=== PATIENT | female | born 2000 | race Caucasian/White ===

== ENCOUNTER 2024-01-10 14:05 | Emergency (ER) | payer MEDICAID, SELFPAY ==
[2024-01-10 14:11] VITALS: BP 137/99; PULSE 98; RESP 18; TEMP 36.3; O2SAT 97
--- NOTE | 2024-01-10 14:30 | CRLHL7_ITS ---
For Patients: As a result of the Cures Act, medical imaging exams and procedure reports are released immediately into your electronic medical record. You may view this report before your referring provider. If you have questions, please contact your health care provider. INDICATION: Foot pain. Missed step at wedding. TECHNIQUE: Left foot three views. COMPARISON: None. FINDINGS: Nondisplaced transverse type fracture of the proximal 5th metatarsal. No additional evidence of fracture. Soft tissue swelling. No radiopaque foreign body. IMPRESSION: Proximal 5th metatarsal fracture. Dictated by Coleman Sim MD @ 01/10/2024 4:07:41 PM (Electronically Signed)
--- NOTE | 2024-01-10 14:37 | ED_ITS ---
HPI - Extremity Injury (Lower) General Date Seen: 01/10/24 Chief Complaint: Extremity Pain/Injury, Lower Stated Complaint: foot pain - broken Time Seen by Provider: 01/10/24 14:07 Source: patient Mode of arrival: ambulatory Limitations: no limitations History of Present Illness HPI Narrative: Patient is the very nice 23-year-old female presents here with her significant other with left foot pain she was seen in [address] 2 days ago after she missed a step been diagnosed with a broken foot. On reviewing the notes, she has a closed 5th metatarsal fracture, she was post to get follow-up for least a call in now 1 has called her. She is placed on ibuprofen and tramadol once a day. The pain seems worse, she is in a cam walker. Denies any numbness tingling or weakness. Any previous history of foot injury. The pain however is worsening. Related Data Home Medications ?Medication ?Instructions ?Recorded ?Confirmed ibuprofen 600 mg tablet 600 mg PO Q6H PRN 01/10/24 01/10/24 tramadol 50 mg tablet 50 mg PO Q6H PRN 01/10/24 01/10/24 Allergies Allergy/AdvReac Type Severity Reaction Status Date / Time No Known Drug Allergies Allergy Verified 01/10/24 14:13 Review of Systems Status of ROS: Reports: 6 or more systems reviewed and unremarkable except as noted in History and below [facility] Social History Smoking Status: Never smoker How often do you have a drink containing alcohol: never AUDIT-C Alcohol total score: 0 service: No Exam Narrative: Exam Narrative: Patient appears no apparent distress her cam walker is a move she has swelling over the lateral part of her foot this consistent with this along with some bruising DP and posterior tibial pulses are normal there is no lesion to suggest open. And dorsiflexion plantar flexion of her foot is normal. Const: Vital Signs, click to edit/add: Vital Signs - 24 hr 01/10/24 14:11 Temperature 97.4 F L Pulse Rate [Right Pulse Oximeter] 98 Respiratory Rate 18 Blood Pressure [Ri ght Upper Arm] 137/99 H Pulse Oximetry 97 Oxygen Delivery Me thod Room Air Documenting provider has reviewed patient's vital signs: yes Course Course ED Course: I discussed with her we will leave her in a cam walker, will get her follow-up with Orthopedics, his lungs the fracture does not move, I think she stands a good chance of healing. We will set her stop the tramadol Tylenol and ibuprofen. She was comfortable with this plan Vital Signs Vital signs: Initial Vital Signs Temperature 97.4 F L 01/10/24 14:11 Temperature Source Temporal Artery Scan 01/10/24 14:11 Pulse Rate 98 01/10/24 14:11 Pulse Rhythm Regular 01/10/24 14:11 Pulse Strength 3+ Normal 01/10/24 14:11 Respiratory Rate 18 01/10/24 14:11 Blood Pressure 137/99 H 01/10/24 14:11 Blood Pressure Mean 111 H 01/10/24 14:11 Blood Pressure Position Sitting 01/10/24 14:11 Pulse Oximetry 97 01/10/24 14:11 Oxygen Delivery Method Room Air 01/10/24 14:11 Vital Signs Temperature 97.4 F L 01/10/24 14:11 Pulse Rate 98 01/10/24 14:11 Respiratory Rate 18 01/10/24 14:11 Blood Pressure 137/99 H 01/10/24 14:11 Pulse Oximetry 97 01/10/24 14:11 Oxygen Delivery Method Room Air 01/10/24 14:11 Temperature 97.4 F L 01/10/24 14:11 Pulse Rate 98 01/10/24 14:11 Respiratory Rate 18 01/10/24 14:11 Blood Pressure 137/99 H 01/10/24 14:11 Pulse Oximetry 97 01/10/24 14:11 Oxygen Delivery Method Room Air 01/10/24 14:11 MDM - Extremity Injury (Lower) Medical Records Attestation: I reviewed the patient's medical records. Imaging Data Foot x-ray: Attestation: I have reviewed the pertinent imaging results. My impression: 5th metatarsal fracture closed with no displacement or angulation. Pending radiologic evaluation Discharge Plan Discharge Clinical Impression: Closed fracture of fifth metatarsal bone of left foot Patient Disposition: Home w/ Parent or Adult Condition: Stable Instructions: Foot Fracture in Adults (ED) Additional Instructions: Follow up appointment is scheduled at the [facility] on 01/11 with a 2:50pm arrival time. If you have any questions or need to reschedule, please call [phone]. [address] [place] [address] Home rest elevation of foot, ibuprofen and Tylenol for the discomfort, I would not take anymore the tramadol, follow-up with orthopedics. Activity Level: Light activity Activity Detail: Off work till follow-up with orthopedics Prescriptions: No Action tramadol 50 mg tablet 50 mg PO Q6H PRN ibuprofen 600 mg tablet 600 mg PO Q6H PRN Follow Up/Referrals: Provider,Not a Local [Primary Care Provider] - Stand Alone Forms: Linkable Networks Info Instructions
== END 2024-01-10 15:20 | disposition home or self-care (01) ==
PROVIDERS: Emergency Provider Family Medicine
DX: S92.352A Displaced fracture of fifth metatarsal bone, left foot, initial encounter for closed fracture (principal)
CPT/HCPCS: 73630; 99283

== ENCOUNTER 2024-10-19 20:01 | Emergency (ER) | payer MEDICAID, SELFPAY ==
[2024-10-19 20:06] VITALS: BP 144/85; PULSE 86; RESP 16; TEMP 36.3; O2SAT 98; BMI 30.9
--- OUTSIDE RECORDS SUMMARY | 2024-10-19 20:57 | XMS_ITS | Clinical Summary ---
Author Organization [employer] [facility] [employer] Address [address] [place] [id number] Care Team Providers Care Material Mover Name Role Phone KenrickAmber Primary Care Provider [phone] Allergies No known active allergies Medications metFORMIN (GLUCOPHAGE XR) 500 mg Extended-Releas e tabletIndicatio ns:Type 2 diabetes mellitus without complication, without long-term current use of insulin (HC) Take one tablet by mouth daily with food for one week and then increase to one tablet by mouth twice a day with food. 180 Tablet 04/24/2024 Active blood-glucose meterIndication s:Type 2 diabetes mellitus without complication, without long-term current use of insulin (HC) As directed. Dispense meter covered by pts insurance. 1 Each 04/24/2024 Active lancetsIndicati ons:Type 2 diabetes mellitus without complication, without long-term current use of insulin (HC) As directed. Test once per day or if symptomatic. 100 Each 12 04/24/2024 Active blood sugar diagnostic (Blood Glucose Test) stripIndication s:Type 2 diabetes mellitus without complication, without long-term current use of insulin (HC) Test once per day or if symptomatic. 100 Each 12 04/24/2024 Active Active Problems Problem Noted Date Diagnosed Date Pap smear for cervical cancer screening 04/17/20 24 Overview (04/17/2024): 03/2024 NIL. Plan: Pap/HPV due 03/2027. Immunizations Immunization Administration Dates Next Due AMB Influenza, IIV3 (Age >=3 years)(Flu Clinic Only) 03/29/2009 AMB Influenza, IIV4 PF (=>6 mos Flulaval,Fluzone Fluarix)(Flu Clinic Only) 03/21/2015 COVID-19 vaccine (SkyStemBio NTech 30mcg/0.3mL) PF, MDV 11/27/2020,11/06/2020 DTaP 10/19/2005, 2,2000,09/13,2000 HIB-HepB (Comvax) 02/03/2002,2000,08/03/19 01 Hepatitis A (Peds) 07/22/2017,02/09/2014 Human Papilloma Virus Vaccine 03/23/2014, 014 07/27/2014 Inactivated Polio Vaccine 10/19/2005,,2000,07/16 Influenza, IIV3 (Age >=3 years) 06/18/19 11,03/29/2009,05/18/2008,05/15,05/31/2006,05/01/2006 Influenza, IIV4 03/16/2020, 8,03/21/2015,03/14 MENINGOCOCCAL VACCINE 2 VIAL [id number] (MENVEO) 07/22/2017,02/09/2014 MMR 10/19/2005,06/27/2001 Pneumococcal conj 7-Valent ( Prevnar 7) 02/03/2002,2000,2000,07/16 Tdap 04/12/2024,06/08/2012 Varicella Vaccine 10/03/2010,06/27/2001,06/27/19 Family History Medical History Relation Name Comments Diabetes Father Other Mother prediabetes Other Sister 1 prediabetes Good Health Sister 2 Relation Name Status Comments Father Mother Sister 1 Sister 2 Social History Tobacco Use Types Packs/Day Years Used Date Smoking Tobacco: Never Smokeless Tobacco: Never Tobacco Cessation:Counseling Given: Yes Alcohol Use Standard Drinks/Week Comments Not Currently 0 (1 standard drink = 0.6 oz pure alcohol) special occasions -maybe 2 times per year PHQ-2 Answer Date Recorded PHQ-2 TOTAL SCORE 0 04/12/2024 Social Connections Answer Date Recorded Do you often feel lonely or isolated from those around you? 0 04/20/2024 Financial Resource Strain Answer Date R ecorded Difficulty of Paying Living Expenses 2 04/12/2024 Difficulty of Paying Living Expenses 1 04/12/2024 Food Insecurity Answer Date Recorded Do you worry your food will run out before you are able to buy more? 1 04/20/2024 Transportation Needs Answer Date Record ed Does lack of transportation keep you from medica l appointments? 1 04/20/2024 Does lack of transportation keep you from work, meetings or getting things that you need? 1 04/20/2024 Housing Stability Answer Date Recorded What is your housing situation today? 1 04/20/2024 Interpersonal Safety Answer Date Record ed Are you being hit, kicked, p ushed or yelled at (see row info)? No 01/08/2024 Interpersonal Safety Abuse 12 - 18 Not on file 01/08/2024 Interpersonal Safety Ambulatory Vulnerability No t on file 01/08/2024 Utilities Answer Date Recorded Do you have trouble paying f or utilities (for example, heat, electricity, water, phone)? 2 04/20/2024 Comments No Sex and Gender Information Value Date Recorded Sex Assigned at Not on file Legal Sex Female 5:42 AM UTILITIES AND MAINTENANCE SUPERVISOR Gender Identity Not on file Sexual Orientation Not on file Obstetrics History Para Term AB IAB SAB Ectopic Multiple Livin g Live Births 0 0 0 0 0 0 0 0 0 0 0 Last Filed Vital Signs Vital Sign Reading Time Taken Comments Blood Pressure 131/79 06/28/2024 1:44 PM UTILITIES AND MAINTENANCE SUPERVISOR Pulse 66 06/28/2024 1:44 PM UTILITIES AND MAINTENANCE SUPERVISOR Temperature 36.7 C (98 F) 06/28/2024 1:44 PM UTILITIES AND MAINTENANCE SUPERVISOR Respiratory Rate 16 01/08/2024 12:0 1 AM CDT Oxygen Saturation 100% 06/28/2024 1:44 PM UTILITIES AND MAINTENANCE SUPERVISOR Inhaled Oxygen Concentration - - Weight 103.1 kg (227 lb 3.2 oz) 06/28/2024 1:44 PM UTILITIES AND MAINTENANCE SUPERVISOR Height 162.5 cm (5' 3.98) 06/28/2024 1:44 PM CS T Body Mass Index 39.03 06/28/2024 1:44 PM UTILITIES AND MAINTENANCE SUPERVISOR Plan of Treatment Health Maintenance Due Date Last Done Comments Pneumococcal series for age 6-49 (1 of 2 - PCV) 2019 02/03/2002, 2000, 2000, Additional history exists COVID-19 vaccine series ( season) 2024 11/27/2020, 11/06/2020 Influenza Vaccine (Season Ended) 2025 03/16/2020, 07/22/2017, 03/21/2015, Additional history exists Chlamydia for age 16-24 04/12/2025 04/12/2024 Depression screening for age 12+ 04/14/2025 04/14/2024, 04/13/2024, 04/12/2024, Additional history exists BMI (ht and wt on same day) for age 18+ 06/28/2025 06/28/2024, 09/16/2018 Pap test for age 21-65 04/12/2027 04/12/2024 Tetanus booster 04/12/2034 04/12/2024, 06/08/2012 Hepatitis B series for Diabetes Completed 02/03/2002, 2000, 2000 HPV series for age 9-26 Discontinued 03/23/2014, 02/09 HIV for age 15-65 Completed 04/12/2024 Hepatitis C screening for ag e 18-79 Completed 04/12/2024 Tdap Completed 04/12/2024, 06/08/2012 Procedures Procedure Name Priority Date/Time Associated Diagnosis Comments GC CHLAMYDIA TRACH PROBE Routine 04/12/2024 4:37 PM CDT Screening for chlamydial disease FISH INSPECTOR THIN PREP PAP - AGES 21-24 (RxVantage) Routine 04/12/2024 4:35 PM CDT Pap smear for cervical cancer screening HIV 1/2 ANTIGEN/ANTIBODY FOURTH GENERATION W/RFL ([facility]) Routine 04/12/2024 4:32 PM CDT Screening for HIV (human immunodeficiency virus) Screening examination for STI ANTI HCV Routine 04/12/2024 4:32 PM CDT Need for hepatitis C screening test Screening examination for STI from Last 3 Months or Most Recently Relevant to Health Maintenance Results * GC CHLAMYDIA TRACH PROBE [[id number]] (04/12/2024 4:37 PM CDT) CHLAMYDIA PROBE Negative 10:46 AM CDT [facility] N GONORRHOEAE PROBE Negative 04/13/2024 10:46 AM CDT [facility] Other VAGINAL SWAB / Unknown Non-Blood / Unknown 04/12/2024 4:37 PM CDT 04/12/2024 4:37 PM CDT us Amber Choudhary DO MICROBIOLOGY Final Resu lt [facility] [address] [place] [address], * FISH INSPECTOR THIN PREP PAP - AGES 21-24 (RxVantage) (04/12/2024 4:35 PM CDT) CLINICAL INFORMATION [facility] [employer] Comment:None given LMP [facility] [place] Comment:03/31/24 PREV. PAP [facility] [place] Comment:NONE PREV. BX [facility] [place] Comment:NONE SOURCE FISH INSPECTOR [facility] [place] [facility] Comment:Cervix STATEMENT OF ADEQUACY [facility] [place] Comment: Satisfactory for evaluation. Endocervical/transformation zone component present. INTERPRETATION/RESUL T [facility] [place] Comment: Cytology Results: Negative for intraepithelial lesion or malignancy. COMMENT [facility] [place] Comment: This Pap test has been evaluated with computer assisted technology. WEAPONS MECHANIC [facility] CH4eS [place] Comment: CC, CT (ASCP) CT Screening Location: [facility] [address] [place] [address] REVIEW WEAPONS MECHANIC [facility] [place] Comment: MSJ, CT(ASCP) CT Screening location: [address] [address] THINPREP TIS PAP ALWAYS MESSAGE [facility] [place] Comment: EXPLANATORY NOTE: The Pap is a screening test for cervical cancer. It is not a diagnostic test and is subject to false negative and false positive results. It is most reliable when a satisfactory sample, regularly obtained, is submitted with relevant clinical findings and history, and when the Pap result is evaluated along with historic and current clinical information. Other (Other) 04/12/2024 4:3 5 PM CDT 04/13/2024 3:54 AM CDT Narrative [facility] - 04/16/2024 7:32 AM UTILITIES AND MAINTENANCE SUPERVISOR SPLIT 04/12/2024 FROM [id number] us Amber Choudhary DO PATHOLOGY/CYTOLOGY Final R esult Performing Organization Address [facility] Co de Phone Number [employer] [facility] [address] [place] [address], [facility] [address] [place] [address] * HIV 1/2 ANTIGEN/ANTIBODY FOURTH GENERATION W/RFL ([facility]) (04/12/2024 4:32 PM CDT) HIV AG/AB, 4TH GEN NON-REACT ANIBAL NON-REACT ANIBAL [facility] Comment: HIV-1 antigen and HIV-1/HIV-2 antibodies were not detected. There is no laboratory evidence of HIV infection. PLEASE NOTE: This information has been disclosed to you from records whose confidentiality may be protected by state law. If your state requires such protection, then the state law prohibits you from making any further disclosure of the information without the specific written consent of the person to whom it pertains, or as otherwise permitted by law. A general authorization for the release of medical or other information is NOT sufficient for this purpose. For additional information please refer to http://education.[employer].Medical Solutions/faq/XDM801 (This link is being provided for informational/ educational purposes only.) The performance of this assay has not been clinically validated in patients less than 2 years old. Blood BLOOD SPECIMEN / Unknown 04/12/2024 4:32 PM CDT 04/12/2024 4:32 PM CDT us Amber Choudhary DO SEND OUTS Final Resu lt Performing Organization Address City/[facility]/ZIP Co de Phone Number [employer] [facility] [address] [facility] [address], [facility] [address] [place] [address] * ANTI HCV (04/12/2024 4:32 PM CDT) HEPATITIS C ANTIBODY NON-REACTI VE NON-REACT ANIBAL [facility] Comment: HCV antibody was non-reactive. There is no laboratory evidence of HCV infection. In most cases, no further action is required. However, if recent HCV exposure is suspected, a test for HCV RNA (test code 53617) is suggested. For additional information please refer to http://education.[facility]/faq/AZY95l0 (This link is being provided for informational/ educational purposes only.) Blood BLOOD SPECIMEN / Unknown 04/12/2024 4:32 PM CDT 04/12/2024 4:32 PM CDT Amber Choudhary DO SEND OUTS Final Resu lt [employer] [facility] [address] [place] [address], [facility] [address] [place] [address] from Last 3 Months or Most Recently Relevant to Health Maintenance Insurance [facility] [place] Care Teams Material Mover Relationship Specialty Start Date End Date Amber Choudhary [place] [place] [address] PCP - General Family Practice 04/12/24
--- OUTSIDE RECORDS SUMMARY | 2024-10-19 20:57 | XMS_ITS | Referral Summary ---
Author Organization [facility] Address [address] [place] [address] Care Team Providers Care Frit Mixer And Burner Name Role Phone Rowdy Hurst MD Unavailable None, Primary Care Provider Micaela Luna PA-C Unavailable [phone] Allergies No known active allergies Medications omeprazole (PRILOSEC) 20 mg oral delayed release capsule Take 1 capsule (20 mg) by mouth once daily. Open and sprinkle over water to aid in stomach healing. 90 capsule 07/12/2024 11:43 AM HVAC MECHANICAL ENGINEER 07/12/2024 Active ondansetron (ZOFRAN) 4 mg oral ODT Dissolve 1 tablet (4 mg) in mouth every 8 (eight) hours as needed for nausea. 20 tablet 07/12/2024 11:43 AM HVAC MECHANICAL ENGINEER 07/12/2024 Active methocarbamoL (ROBAXIN) 500 mg oral tablet Take 1 tablet (500 mg) by mouth every 6 (six) hours as needed (muscle spasms). Crush tablet. 20 tablet 07/12/2024 11:43 AM HVAC MECHANICAL ENGINEER 07/12/2024 Active hyoscyamine sulfate (LEVSIN) 0.125 mg sublingual sublingual tablet Take 1 tablet (0.125 mg) under the tongue every 4 (four) hours as needed (esophageal spasm). 15 tablet 07/12/2024 11:43 AM HVAC MECHANICAL ENGINEER 07/12/2024 Active oxyCODONE (ROXICODONE) 5 mg/5 mL oral solution Take 5 mL (5 mg) by mouth every 6 (six) hours as needed (pain not relieved by acetaminophen ). 50 mL 07/12/2024 11:43 AM HVAC MECHANICAL ENGINEER 07/12/2024 Active metFORMIN ER (GLUCOPHAGE XR) 500 mg oral extended release tablet 24 HR Take 1 tablet (500 mg) by mouth every morning. 90 tablet 07/12/2024 11:43 AM HVAC MECHANICAL ENGINEER 07/12/2024 Active Active Problems Problem Noted Date Diagnosed Date Obesity due to excess calori es, unspecified obesity severity 07/11/2024 Obesity, unspecified class, unspecified obesity type, unspecified whether serious comorbidity present 03/17/2024 Periodic limb movements of sleep 03/17/2024 Immunizations Name Administration Dates Next Due DTaP (Infanrix) 10/19/2005, 2,2000,10/05,2000 HIB/HepB 02/03/2002,2000,2000 HPV Quadrivalent 03/23/2014,02/09/2014 Hep A Pediatric 07/22/2017,02/09/2014 Influenza split virus (Fluzo ne Quadrivalent PF) 03/16/2020,07/22/2017,03/21/2015,03/23 Influenza split virus trivalent 06/18/19 11,03/29/2009,05/18/2008,06/08,05/31/2006,05/01/2006 MMR 10/19/2005,06/27/2001 Meningococcal MCV4O 07/22/2017,02/09/2014 SingleFeed 12+ Yrs Monovalent CO VID Vaccine (purple cap) 11/27/2020,11/06/2020 Pneumococcal PCV7 02/03/2002, 1,2000,08/03 Polio IPV 10/19/2005, 1,2000,08/03 Tdap 06/08/2012 Varicella 10/03/2010,06/27/2001,2000 Social History Tobacco Use Types Packs/Day Years Used Date Smoking Tobacco: Never Smokeless Tobacco: Never Tobacco Cessation:Counseling Given: Not Answered Alcohol Use Standard Drinks/Week Comments Not Currently 0 (1 standard drink = 0.6 oz pur e alcohol) [facility] Utilities Answer Date Recorded In the past 12 months has th e electric, gas, oil, or water company threatened to shut off services in your home? No 07/11/2024 Humiliation, Afraid, Rape, and Kick questionnair e Answer Date Recorded Within the last year, have y ou been afraid of your partner or ex-partner? No 07/11/2024 Within the last year, have y ou been humiliated or emotionally abused in other ways by your partner or ex-partner? No Within the last year, have y ou been kicked, hit, slapped, or otherwise physically hurt by your partner or ex-partner? No 07/11/2024 Within the last year, have y ou been raped or forced to have any kind of sexual activity by your partner or ex-partner? No 07/11/2024 PHQ-2 Answer Date Recorded PHQ2 Total 1 12/16/2023 Hunger Vital Sign Answer Date Recorded Within the past 12 months, y ou worried that your food would run out before you got the money to buy more. Never true 07/11/19 25 Within the past 12 months, t he food you bought just didn't last and you didn't have money to get more. Never true 07/11/2024 PRAPARE - Transportation Answer Date Re corded In the past 12 months, has l ack of transportation kept you from medical appointments or from getting medications? No 06/15 In the past 12 months, has l ack of transportation kept you from meetings, work, or from getting things needed for daily living? No 07/11/2024 Housing Stability Vital Sign Answer Tee e Recorded In the last 12 months, was t here a time when you were not able to pay the mortgage or rent on time? No 07/11/2024 In the past 12 months, how m any times have you moved where you were living? 1 07/11/2024 At any time in the past 12 m [facility], were you homeless or living in a [place] health care facility (including now)? No 07/11/2024 Comments No Sex and Gender Information Value Date Recorded Sex Assigned at Female 03/17/2024 4:53 AM CDT Legal Sex Female 11:29 AM CDT Gender Identity Female 03/17/2024 4:53 AM CDT Sexual Orientation Not on file Last Filed Vital Signs Vital Sign Reading Time Taken Comments Blood Pressure 130/80 07/12/2024 11:57 AM HVAC MECHANICAL ENGINEER Pulse 62 07/12/2024 11:57 AM HVAC MECHANICAL ENGINEER Temperature 37.1 C (98.8 F) 07/12/2024 11:57 AM HVAC MECHANICAL ENGINEER Respiratory Rate 18 07/12/2024 11:57 AM HVAC MECHANICAL ENGINEER Oxygen Saturation 99% 07/12/2024 11:57 AM HVAC MECHANICAL ENGINEER Inhaled Oxygen Concentration - - Weight 97.3 kg (214 lb 9.6 oz) 07/11/2024 1:52 P M HVAC MECHANICAL ENGINEER Height 162.6 cm (5' 4) 07/11/2024 1:52 PM HVAC MECHANICAL ENGINEER Body Mass Index 36.84 07/11/2024 1:52 PM HVAC MECHANICAL ENGINEER Plan of Treatment Not on file Medical Devices Implanted Type Area Solvent Plant Operator Device Identifier Shelf Expiration Date Model / Serial / Lot Seamguard Sureform Xi 60gr/Iraj - [id number] Implanted:Qty : 4 on 07/11/2024 by Rowdy Hurst MD at [facility] Supply N/A: Abdomen [employer] 05/02/2027 [id number] / / [id number] [facility] Advance Directives For more information, please contact: [phone] * Full Code (Latest Code Status on File) Date Activated Date Inactivated Comments 07/11/2024 9:59 AM 07/12/2024 6:39 PM Question Answer Comments How was code status determined? [facility] Care Teams Frit Mixer And Burner Relationship Specialty Start Date End Date Rowdy Hurst MD [address] [place] [id number] PCP - Surgeon General Surgery 10/25/23 Md Luis PCP - General 10/28/23 Micaela Zuñiga, PA-C [address] [facility] [address] [place] [address] Neurology 02/28/24
--- OUTSIDE RECORDS SUMMARY | 2024-10-19 20:57 | XMS_ITS | Clinical Summary ---
Author Organization [facility] Address [address] [place] [id number] Care Team Providers Care Income Tax Auditor Name Role Phone Rowdy Hurst MD Unavailable None, Primary Care Provider Micaela Luna PA-C Unavailable [phone] Allergies No known active allergies Medications omeprazole (PRILOSEC) 20 mg oral delayed release capsule Take 1 capsule (20 mg) by mouth once daily. Open and sprinkle over water to aid in stomach healing. 90 capsule 07/12/2024 11:43 AM RELIEF CHARGE NURSE 07/12/2024 Active ondansetron (ZOFRAN) 4 mg oral ODT Dissolve 1 tablet (4 mg) in mouth every 8 (eight) hours as needed for nausea. 20 tablet 07/12/2024 11:43 AM RELIEF CHARGE NURSE 07/12/2024 Active methocarbamoL (ROBAXIN) 500 mg oral tablet Take 1 tablet (500 mg) by mouth every 6 (six) hours as needed (muscle spasms). Crush tablet. 20 tablet 07/12/2024 11:43 AM RELIEF CHARGE NURSE 07/12/2024 Active hyoscyamine sulfate (LEVSIN) 0.125 mg sublingual sublingual tablet Take 1 tablet (0.125 mg) under the tongue every 4 (four) hours as needed (esophageal spasm). 15 tablet 07/12/2024 11:43 AM RELIEF CHARGE NURSE 07/12/2024 Active oxyCODONE (ROXICODONE) 5 mg/5 mL oral solution Take 5 mL (5 mg) by mouth every 6 (six) hours as needed (pain not relieved by acetaminophen ). 50 mL 07/12/2024 11:43 AM RELIEF CHARGE NURSE 07/12/2024 Active metFORMIN ER (GLUCOPHAGE XR) 500 mg oral extended release tablet 24 HR Take 1 tablet (500 mg) by mouth every morning. 90 tablet 07/12/2024 11:43 AM RELIEF CHARGE NURSE 07/12/2024 Active Active Problems Problem Noted Date [...] 06/18/19 11,03/29/2009,05/18/2008,06/08,05/31/2006,05/01/2006 MMR 10/19/2005,06/27/2001 Meningococcal MCV4O 07/22/2017,02/09/2014 uGift 12+ Yrs Monovalent CO VID Vaccine (purple cap) 11/27/2020,11/06/2020 Pneumococcal PCV7 02/03/2002, 1,2000,08/03 Polio IPV 10/19/2005, 1,2000,08/03 Tdap 06/08/2012 Varicella 10/03/2010,06/27/2001,2000 Social History Tobacco Use Types Packs/Day Years Used Date Smoking Tobacco: Never Smokeless Tobacco: Never Tobacco Cessation:Counseling Given: Not Answered Alcohol Use Standard Drinks/Week Comments Not Currently 0 (1 standard drink = 0.6 oz pur e alcohol) [facility] Utilities Answer Date Recorded In the past [...] any time in the past 12 m [facility] [place] were you homeless or living in a senior living (including now)? No 07/11/2024 Comments No Sex and Gender Information Value Date Recorded Sex Assigned at Female 03/17/2024 4:53 AM CDT Legal Sex Female 11:29 AM CDT Gender Identity Female 03/17/2024 4:53 AM CDT Sexual Orientation Not on file Last Filed Vital Signs Vital Sign Reading Time Taken Comments Blood Pressure 130/80 07/12/2024 11:57 AM RELIEF CHARGE NURSE Pulse 62 07/12/2024 11:57 AM RELIEF CHARGE NURSE Temperature 37.1 C (98.8 F) 07/12/2024 11:57 AM RELIEF CHARGE NURSE Respiratory Rate 18 07/12/2024 11:57 AM RELIEF CHARGE NURSE Oxygen Saturation 99% 07/12/2024 11:57 AM RELIEF CHARGE NURSE Inhaled Oxygen Concentration - - Weight 97.3 kg (214 lb 9.6 oz) 07/11/2024 1:52 P M RELIEF CHARGE NURSE Height 162.6 cm (5' 4) 07/11/2024 1:52 PM RELIEF CHARGE NURSE Body Mass Index 36.84 07/11/2024 1:52 PM RELIEF CHARGE NURSE Plan of Treatment Health Maintenance Due Date Last Done Comments Chlamydia/Gonorrhea Screening 2000 Evaluate Sexual History 2000 Pap Smear 2000 HPV Vaccine (3 - 2-dose series) 08/11/2014 03/23/2014, 02/09/2014 COVID-19 Vaccine ( season) 2024 11/27/2020, 11/06/2020 Anxiety Follow-Up (TENNILLE-7) 11/25/2024 11/26/2023 Depression Follow-Up (PHQ-9) 11/25/2024 11/26/2023 Influenza Vaccine (Season Ended) 2025 03/16/2020, 07/22/2017, 03/21/2015, Additional history exists Adult Tetanus Booster 04/12/2034 04/12/2024, 012 RSV Vaccines (1 - 1-dose 75+ series) 2075 Pneumococcal Vaccine Aged Out 02/03/2002, 2000, 2000, Additional history exists No longer eligible based on patient's age to complete this topic Hepatitis C Screening Completed 04/12/2024 Medical Devices Implanted Type Area E Marketing Specialist Device Identifier Shelf Expiration Date Model / Serial / Lot Seamguard Sureform Xi 60gr/Iraj - [id number] Implanted:Qty : 4 on 07/11/2024 by Rowdy Hurst MD at [employer] Supply N/A: Abdomen [employer] 05/02/2027 [id number] / / [id number] Insurance [facility] PMAP/[facility] [place], [place] [address]P/[facility] Advance Directives For more information, please contact: [phone] * Full Code (Latest Code Status on File) Date Activated Date Inactivated Comments 07/11/2024 9:59 AM 07/12/2024 6:39 PM Question Answer Comments How was code status determined? Previous Documen tation Care Teams Income Tax Auditor Relationship Specialty [place] [address] [place] [address] [place] [phone] PCP - Surgeon General Surgery 10/25/23 Luis, PCP - General 10/28/23 Micaela Zuñiga PA-C [address] [facility] [address] [place] [address] Neurology 02/28/24
--- NOTE | 2024-10-19 21:11 | ED_ITS ---
HPI - General Adult General Date Seen: 10/19/24 Chief complaint: Chest Pain Stated complaint: back pain, chest pain Time Seen by Provider: 10/19/24 20:48 Source: patient Mode of arrival: ambulatory Limitations: no limitations History of Present Illness HPI narrative: patient is a 24-year-old female from a gastric sleeve procedure done 3 months ago presents for sudden onset epigastric and back pain. She states prior to arrival she was eating when she suddenly developed this pain. She states by time she got to the emergency department pain has fully resolved. She describes as a cramping sensation. Has never had pain like this before. She states she now feels much better. She was concerned due to the recent surgery. No associated nausea. Denies fevers, chills, diarrhea, constipation, weakness, numbness, headache. No other concerns Related Data Home Medications ?Medication ?Instructions ?Recorded ?Confirmed No Known Home Medications 10/19/24 10/19/24 Allergies Allergy/AdvReac Type Severity Reaction Status Date / Time No Known Drug Allergies Allergy Verified 01/12/24 15:14 Review of Systems Status of ROS: Reports: 10 or more systems reviewed and unremarkable except as noted in History and below [facility] Social History Smoking Status: Never smoker How often do you have a drink containing alcohol: monthly or less AUDIT-C Alcohol total score: 1 Non-prescribed substance use: denies use service: No Exam Narrative: Exam Narrative: Const: Well-nourished, Well-developed, in No distress Eyes: PERRL, no conjunctival injection, and symmetrical lids HENT: Atraumatic external nose and ears. Moist mucous membranes. Neck: Symmetric, trachea midline, No thyromegaly. CVS: RRR, No murmurs or gallops. Peripheral pulses 2+ and equal in all extremities RESP: Unlabored respiratory effort. Clear to auscultation bilaterally. GI: Nontender/Nondistended, No rebound or guarding. MSK:Extremities w/o deformity, Normal Active ROM Skin: Warm, Dry. No rashes or lesions. Neuro: Normal Muscle tone, No focal neurological deficits. Psych: Awake, Alert, & Oriented x3. Appropriate mood and affect. Const: Vital Signs, click to edit/add: Vital Signs - 24 hr 10/19/24 20:06 10/19/24 22:20 Temperature 97.3 F L 97.7 F Pulse Rate [Pulse Oximeter] 86 73 Respiratory Rate 16 18 Blood Pressure [Ri ght Upper Arm] 144/85 H 122/72 Pulse Oximetry 98 99 Oxygen Delivery Me thod Room Air Room Air Course Vital Signs Vital signs: Initial Vital Signs Temperature 97.3 F L 10/19/24 20:06 Temperature Source Temporal Artery Scan 10/19/24 20:06 Pulse Rate 86 10/19/24 20:06 Respiratory Rate 16 10/19/24 20:06 Blood Pressure 144/85 H 10/19/24 20:06 Blood Pressure Mean 104 10/19/24 20:06 Blood Pressure Position Sitting 10/19/24 20:06 Pulse Oximetry 98 10/19/24 20:06 Oxygen Delivery Method Room Air 10/19/24 20:06 Vital Signs Temperature 97.3 F L 10/19/24 20:06 Pulse Rate 86 10/19/24 20:06 Respiratory Rate 16 10/19/24 20:06 Blood Pressure 144/85 H 10/19/24 20:06 Pulse Oximetry 98 10/19/24 20:06 Oxygen Delivery Method Room Air 10/19/24 20:06 Temperature 97.7 F 10/19/24 22:20 Pulse Rate 73 10/19/24 22:20 Respiratory Rate 18 10/19/24 22:20 Blood Pressure 122/72 10/19/24 22:20 Pulse Oximetry 99 10/19/24 22:20 Oxygen Delivery Method Room Air 10/19/24 22:20 Medical Decision Making MDM Narrative Medical decision making narrative: patient is a 24-year-old female presenting for epigastric pain and back pain. She described as a cramping sensation since resolved. She now Feels sore in the area. I did of the some thought this could be some gallbladder disease but considering she just ate it would be decompressed and would not be able to be evaluated with ultrasound. If there was a cholelithiasis blocking it I would expected to still be having pain. This could be pancreatitis a lipase was ordered. With the Location of the pain it could be some chest pain so I will order a EKG and troponin. Also order a test, CBC, liver enzymes, lipase. considering she just had this gastric sleeve I did consider a CT scan but she is relatively young and with a gastric sleeve she likely will have multiple CT scans in the future and do not believe the imaging is necessary at this time as symptoms have resolved. frequent CT scans would be unnecessary radiation. Lab work all returned showing no acute concerning abnormalities. She has a very mildly elevated white count at 12.65. she has no other concerning abnormalities in her lab work or vital signs. I do not believe this white count is a sign of infection. Her symptoms have not returned. EKG and troponin show no acute abnormalities. At this time I believe she is safe for discharge. She is agreeable to this plan. Lab Data Labs: Lab Results 10/19/24 10/19/24 10/19/24 Range/Units 21:03 21:15 21:35 WBC 12.65 H (4.50-11.00) K/uL RBC 4.81 (4.00-5.20) m/uL Hgb 11.7 L (12.0-16.0) gm/dL Hct 36.8 (33.0-51.0) % MCV 77 L (80-100) fL MCH 24 L (26-34) pg MCHC 32 (32-36) gm/dL RDW Coeff of Pratibha 17.9 H (11.5-15.5) % Plt Count 377 (140-440) K/uL Neut % (Auto) 78.2 H (42.0-72.0) % Lymph % (Auto) 14.6 L (20-44) % [place] % (Auto) 5.5 (0.0-11.0) % Eos % (Auto) 1.3 (0.0-7.0) % Baso % (Auto) 0.2 (0.0-3.0) % Neut # (Auto) 9.90 H (1.7-7.0) K/uL Lymph # (Auto) 1.80 (0.90-2.90) K/uL [place] # (Auto) 0.70 (0.00-0.90) K/UL Eos # (Auto) 0.20 (0.00-0.50) K/uL Baso # (Auto) 0.00 (0.00-0.30) K/uL Abs Immat Gran (auto) 0.00 (0.00-0.30) K/uL Imm/Tot Granulo (auto) 0.2 % Sodium 139 (135-149) mmol/L Potassium 4.3 (3.6-5.1) mmol/L Chloride 106 (96-114) mmol/L Carbon Dioxide 23 (20-32) mmol/L Anion Gap 10 (7-15) mEq/L BUN 11 (5-24) mg/dL Creatinine 0.7 (0.5-1.5) mg/dL Estimated Creat Clear 107.01 Estimated GFR 124 ml/min Glucose 104 (60-115) mg/dL Calcium 9.5 (8.4-10.6) mg/dL Total Bilirubin 0.4 (0.1-1.5) mg/dL Direct Bilirubin 0.3 (0.0-0.5) mg/dL AST 26 (12-35) U/L ALT 14 (4-35) U/L Alkaline Phosphatase 99 (40-150) U/L Troponin I < 0.01 (0.01-0.04) ng/mL Total Protein 7.9 (6.0-8.3) g/dL Albumin 4.5 (3.3-5.0) g/dL Lipase 249 (23-300) U/L HCG, Qual Negative (Negative) Lab Acknowledgement Test Added Test Added ECG Data Attestation: I personally reviewed and interpreted this ECG as follows: Prior ECG tracings: not available for review Interpretation: Normal sinus rhythm with a rate of 68 beats per minute, normal intervals, normal axis, no ST or T-wave abnormalities Discharge Plan Discharge Clinical Impression: Abdominal pain Qualifiers: Abdominal location: epigastric Qualified Code(s): R10.13 - Epigastric pain Patient Disposition: Home, Self-Care Condition: Stable Instructions: Abdominal Pain (ED) Additional Instructions: I do not know exactly what is causing your pain but I do not be concerning abnormalities. Lab work shows no concerning abnormalities. If this happens again make sure to follow-up with Your surgeon. Return to emergency department for new worsening symptoms. Prescriptions: No Action No Known Home Medications Follow Up/Referrals: Provider,Not a Local [Primary Care Provider] - Stand Alone Forms: [facility] Info Instructions
[2024-10-19 21:26] LABS: Albumin* 4.5 g/dL (3.3-5.0); Chloride* 106 mmol/L (96-114); Potassium* 4.3 mmol/L (3.6-5.1); Sodium* 139 mmol/L (135-149)
[2024-10-19 21:29] LABS: Alanine Aminotransferase* 14 U/L (4-35); Alkaline Phosphatase* 99 U/L (40-150); Anion Gap 10 mEq/L (7-15); Aspartate Amino Transferase* 26 U/L (12-35); Bilirubin Direct* 0.3 mg/dL (0.0-0.5); Bilirubin Total* 0.4 mg/dL (0.1-1.5); Blood Urea Nitrogen* 11 mg/dL (5-24); Calcium* 9.5 mg/dL (8.4-10.6); Carbon Dioxide* 23 mmol/L (20-32); Creatinine* 0.7 mg/dL (0.5-1.5); Est. Creatinine Clearance* 107.01; Estimated Glomerular Filt Rate 124 ml/min; Glucose* 104 mg/dL (60-115); Lipase* 249 U/L (23-300); Total Protein* 7.9 g/dL (6.0-8.3)
[2024-10-19 21:33] LABS: HCG Qualitative Serum* Negative (Negative)
[2024-10-19 21:48] LABS: Basophils Percent Auto 0.2 % (0.0-3.0); Eosinophils Percent Auto 1.3 % (0.0-7.0); Hematocrit 36.8 % (33.0-51.0); Hemoglobin* 11.7 gm/dL (12.0-16.0); Immature Granulocytes Pct Auto 0.2 %; Lymphocytes Percent Auto 14.6 % (20-44); Mean Corpuscular HGB Conc 32 gm/dL (32-36); Mean Corpuscular Hemoglobin 24 pg (26-34); Mean Corpuscular Volume 77 fL (80-100); Monocytes Percent Auto 5.5 % (0.0-11.0); Neutrophils Percent Auto 78.2 % (42.0-72.0); Platelet Count* 377 K/uL (140-440); RDW Coefficient of Variation % 17.9 % (11.5-15.5); Red Blood Count 4.81 m/uL (4.00-5.20); White Blood Count* 12.65 K/uL (4.50-11.00)
[2024-10-19 21:49] LABS: Slide Review Reflex No
[2024-10-19 22:20] VITALS: BP 122/72; PULSE 73; RESP 18; TEMP 36.5; O2SAT 99
[2024-10-19 22:25] LABS: Troponin I* < 0.01 ng/mL (0.01-0.04)
== END 2024-10-19 22:40 | disposition home or self-care (01) ==
PROVIDERS: Emergency Provider Student in an Organized Health Care Education/Training Program
DX: R10.13 Epigastric pain (principal); R07.9 Chest pain, unspecified
CPT/HCPCS: 36415; 80053; 80076; 83690; 84484; 84703; 85025; 93005; 99284

== ENCOUNTER 2025-01-08 06:11 | Day surgery (SDC) | payer MEDICAID, SELFPAY ==
[2025-01-08] VITALS (12 sets, daily range): BP systolic 106–149; BP diastolic 57–72; PULSE 58–82; RESP 14–16; TEMP 36.2–37; O2SAT 94–98; BMI 28.7
[2025-01-08] MEDS: SODIUM CHLORIDE 0.9 % (FLUSH) 10 ML SYRINGE IVF (06:35)
[2025-01-08] MEDS: LACTATED RINGERS 1000 ML 1,000 ML 100 ML IV ×2 (06:35→08:32)
[2025-01-08 06:40] LABS: Ur HCG Qualitative* Negative (Negative)
[2025-01-08] MEDS: BUPIVACAINE 0.25% 30 ML 20 ML INJECTION (07:28)
--- NOTE | 2025-01-08 07:40 | W.PM.H&PU ---
History & Physical Update History & Physical Update H&P Reviewed and patient assessed: No changes noted
--- NOTE | 2025-01-08 07:41 | P.GSOP_ITS ---
Operative Note Date of procedure: 01/08/25 Pre-op diagnosis: Biliary colic Post-op diagnosis: Same Type of Procedure: Laparoscopic cholecystectomy Indications: The patient is a 24-year-old female who has had multiple previous episodes of right upper quadrant pain associated with eating as well as nausea and vomiting. This comes in the setting of recent significant weight loss. Workup revealed gallstones. I recommended cholecystectomy and after discussion of risks and benefits, the patient agreed to proceed. Procedure Description: After discussing the risks and benefits of the procedure, the patient signed informed consent.? The operative site was marked and the patient was brought to the operating room and placed on the operating table in supine position.? Care was taken to pad the patient's pressure points.?? The patient was then intubated by anesthesia.?? The operative site was then prepped and draped in the usual sterile fashion.? A time-out was then performed. Entrance to the abdomen was gained via a 5 mm Visiport in the left upper quadrant. The abdomen was insufflated and briefly surveyed for signs of injury. There was none. A 10 mm umbilical port was placed as well as 2 working ports along the right costal margin, all under direct vision. The patient was then p laced in reverse Trendelenburg position with the right side up. The gallbladder fundus was grasped and retracted cephalad. The infundibulum was grasped. A combination of hook cautery and blunt dissection was used to carefully dissect out the cystic duct and artery until they could clearly be seen entering the gallbladder without any intervening structures. The gallbladder was dissected off the cystic plate to achieve the critical view. Once this was achieved the cystic duct and artery were each clipped with 2 clips proximally and 1 clip distally and transected with the scissors. There were no obvious stones palpated in the cystic duct, however he tiny stone was seen when the duct was transected. The gallbladder was then taken off of the liver bed and removed from the abdomen using an Endo-Catch bag. The gallbladder bed was surveyed for hemostasis which appeared adequate. A small amount of bile which had spilled was suctioned from the abdomen. The umbilical port fascia was closed with 0 Vicryl using a Jamaal-Lul device. The remaining ports were then removed and the abdomen desufflated. The skin was closed with absorbable subcuticular suture. Sterile dressings were applied. Instrument sponge and needle counts were correct at the end of the case. The patient was then woken and transferred to the PACU in stable condition. The patient was then woken and transported to the recovery area in stable condition. ? The patient tolerated the procedure well. Findings: Gallstones Surgeon: Gail Reina MD Estimated blood loss (mL): 5 Specimen: Gallbladder Condition: stable Disposition: PACU
--- NOTE | 2025-01-08 08:50 | P.ANES_ITS ---
Anesthesia Charges Start Date/Time Anesthesia Start Date: 01/08/25 Anesthesia Start Time: 07:30 Stop Date/Time Anesthesia Stop Date: 01/08/25 Anesthesia Stop Time: 08:50 Coding CPT Codes CPT Codes: ANESTH SURG UPPER ABDOMEN - 83667 ([id number]) P2 - PATIENT W/MILD SYST DISEASE, QZ - AIR AND MISSILE DEFENSE CREWMEMBER SVC W/O LITHOGRAPHIC PRESS OPERATOR BY
--- NOTE | 2025-01-08 08:50 | W.ANESCHARGE ---
Anesthesia Charges Start Date/Time Anesthesia Start Date: 01/08/25 Anesthesia Start Time: 07:30 Stop Date/Time Anesthesia Stop Date: 01/08/25 Anesthesia Stop Time: 08:50 Coding CPT Codes CPT Codes: ANESTH SURG UPPER ABDOMEN - 46122 ([id number]) P2 - PATIENT W/MILD SYST DISEASE, QZ - MILITARY SCIENCE INSTRUCTOR SVC W/O PLANNING ASSOCIATE BY
--- NOTE | 2025-01-08 09:45 | SUR.OPER ---
PATIENT QUESTIONS ANSWERED SATISFACTORILY PREOPERATIVELY. PATIENT BROUGHT TO OR #1 PER CART. Patient positioned supine on OR #1 bed. The perioperative team supported arms bilaterally on arm boards. Final approval of positioning by surgeon.
== END 2025-01-08 10:14 | disposition home or self-care (01) ==
PROVIDERS: Anesthesiology; PCP Family Medicine; Visit Provider Surgery
PROC: 0FT44ZZ Resection of Gallbladder, Percutaneous Endoscopic Approach (ICD-10-PCS; CPT 47562; principal; 2025-01-08 07:30)
DX: K80.20 Calculus of gallbladder without cholecystitis without obstruction (principal); R10.11 Right upper quadrant pain
CPT/HCPCS: 47562; 00790; 81025; 88304; J0330; J0665; J0690; J1100; J1171; J2250; J2405; J2704; J2710; J3010; J3490; J7120